=== PATIENT | male | born 1955 | race Native Hawaiian/Other Pacific Islander ===

== ENCOUNTER 2018-01-10 21:44 | Emergency (ER) | payer OTHER ==
[~2018-01-10] VITALS: Ht 175.3 cm; Wt 85.7 kg
[2018-01-10 23:08] VITALS: BP 158/92; TEMP 98
== END 2018-01-10 23:08 | disposition home or self-care (01) ==
LOC: ED 21:44
DX: H01.003 Unspecified blepharitis right eye, unspecified eyelid (principal)
CPT/HCPCS: 36415; 96374; 96375; 99281

== ENCOUNTER 2018-04-14 14:08 | Outpatient (CLI) | payer OTHER ==
[2018-04-14 14:51] LABS: POTASSIUM 4.2 mmol/L (3.6-5.2)
== END 2018-04-14 21:45 | disposition home or self-care (01) ==
LOC: LABW 14:08
PROVIDERS: Internal Medicine Cardiovascular Disease
DX: E78.5 Hyperlipidemia, unspecified (principal); I25.119 Atherosclerotic heart disease of native coronary artery with unspecified angina pectoris
CPT/HCPCS: 36415; 80048; 80061; 80076

== ENCOUNTER 2018-08-02 10:01 | Outpatient (CLI) | payer OTHER | END 2018-08-02 18:59 | disposition home or self-care (01) | LOC: LABW 10:01 | PROVIDERS: Physician Assistant Medical | DX: I25.119 Atherosclerotic heart disease of native coronary artery with unspecified angina pectoris (principal); I42.9 Cardiomyopathy, unspecified | CPT/HCPCS: 36415; 80048 ==

== ENCOUNTER 2018-10-22 22:31 | Outpatient (CLI) | payer OTHER | END 2018-10-22 23:01 | disposition short-term general hospital (02) | LOC: AMB 22:31 | DX: R06.02 Shortness of breath (principal); R57.8 Other shock | CPT/HCPCS: A0425; A0427 ==

== ENCOUNTER 2019-02-17 10:40 | Outpatient (CLI) | payer OTHER | END 2019-02-17 23:04 | disposition home or self-care (01) | LOC: LABW 10:40 | PROVIDERS: Internal Medicine Cardiovascular Disease | DX: E78.5 Hyperlipidemia, unspecified (principal); I25.119 Atherosclerotic heart disease of native coronary artery with unspecified angina pectoris; Z09 Encounter for follow-up examination after completed treatment for conditions other than malignant neoplasm | CPT/HCPCS: 36415; 80061; 80076 ==

== ENCOUNTER 2019-08-29 09:02 | Outpatient (CLI) | payer OTHER | END 2019-08-29 19:12 | disposition home or self-care (01) | LOC: LABW 09:02 | PROVIDERS: Internal Medicine Cardiovascular Disease | DX: E78.5 Hyperlipidemia, unspecified (principal); Z09 Encounter for follow-up examination after completed treatment for conditions other than malignant neoplasm | CPT/HCPCS: 36415; 80061; 80076 ==

== ENCOUNTER 2020-04-30 20:32 | Inpatient (IN) | payer OTHER ==
[~2020-04-30] VITALS: Ht 175.3 cm; Wt 104.9 kg
[2020-04-30 21:00] VITALS: BP 131/71; TEMP 98.7
[2020-04-30 22:14] LABS: PLATELET COUNT 229 K/uL (142-355)
[2020-04-30 22:37] LABS: PARTIAL THROMBOPLASTIN TIME 26.6 SECONDS (24.5-33.6)
[2020-04-30 22:38] LABS: POTASSIUM 4.6 mmol/L (3.6-5.2)
[2020-05-01 04:18] VITALS: BP 93/40; TEMP 97.2
[2020-05-01 04:59] VITALS: BP 120/72; TEMP 98.3; Ht 175.3 cm; Wt 104.9 kg
[2020-05-01] MEDS ORDERED: CARV6.25 PO (07:48)
[2020-05-01] MEDS ORDERED: FURO40TA93 PO (07:49)
[2020-05-01] MEDS ORDERED: EZET10TA13 PO (07:50)
[2020-05-01] MEDS ORDERED: PRAVACHOL20 MG PO (07:52)
[2020-05-01] MEDS ORDERED: ASPIRIN 81 LOW81 MG PO (07:54)
[2020-05-01] MEDS ORDERED: ENTRESTO 24-261 TAB PO ×2 (07:56→07:58)
[2020-05-01 08:00] VITALS: BP 113/63; TEMP 97.9
[2020-05-01] MEDS ORDERED: PRAS10TA PO (08:01)
[2020-05-01 12:00] VITALS: BP 136/75; TEMP 98.1
[2020-05-01] MEDS ORDERED: ALBU90AE13 INH (16:47)
[2020-05-01] MEDS ORDERED: AZIT250T3 PO (16:50)
[2020-05-01] MEDS ORDERED: BUDE1AER5 INH (16:51)
[2020-05-01] MEDS ORDERED: PRED10TA27 PO (16:53)
== END 2020-05-01 17:52 | disposition home or self-care (01) | DRG 192 ==
LOC: ED 20:32 → MED/SURG 05-01 00:35
PROVIDERS: Hospitalist; ADMIT Internal Medicine
DX: J44.1 Chronic obstructive pulmonary disease with (acute) exacerbation (principal); I25.10 Atherosclerotic heart disease of native coronary artery without angina pectoris; I11.0 Hypertensive heart disease with heart failure; I50.9 Heart failure, unspecified; Z72.0 Tobacco use; E11.9 Type 2 diabetes mellitus without complications; M15.8 Other polyosteoarthritis; G47.33 Obstructive sleep apnea (adult) (pediatric); I44.7 Left bundle-branch block, unspecified
CPT/HCPCS: 36415; 80053; 81000; 82550; 83880; 84484; 85027; 85610; 85730; 93005; 94640; 94664; 94760; 96365; 96375; 99284; J0696; J1940; J2405; J2930

== ENCOUNTER 2021-03-09 21:00 | Inpatient (IN) | payer OTHER ==
[~2021-03-09] VITALS: Ht 175.3 cm; Wt 106.4 kg
[2021-03-09 21:00] VITALS: BP 95/79; TEMP 97.6
[~2021-03-09 21:00] MED LIST: ALBU90AE13 INH; ASPIRIN 81 LOW81 MG PO; AZIT250T3 PO; BUDE1AER5 INH; CARV6.25 PO; ENTRESTO 24-261 TAB PO; EZET10TA13 PO; FURO40TA93 PO; PRAS10TA PO; PRAVACHOL20 MG PO; PRED10TA27 PO
[2021-03-09 21:30] VITALS: BP 87/48
[2021-03-09 22:00] VITALS: BP 74/46
[2021-03-09 22:28] LABS: PLATELET COUNT 247 K/uL (142-355)
[2021-03-09 22:30] VITALS: BP 90/52
[2021-03-09 22:40] LABS: POTASSIUM 3.6 mmol/L (3.6-5.2)
[2021-03-09 23:00] VITALS: BP 71/40
[2021-03-10] VITALS (19 sets, daily range): BP systolic 72–1110; BP diastolic 34–72; TEMP 97.5–99; Ht 175.3 cm; Wt 106.4 kg
[2021-03-10 08:48] LABS: POTASSIUM 3.5 mmol/L (3.6-5.2)
--- NOTE | 2021-03-10 17:40 | NUR ---
PT TRANSFERRED FROM ER TO MED-SURG FLOOR @1534. PT ALERT AND ORIENTED. VERY TALKATIVE. IV SITE TO LEFT AND RIGHT HAND WITH 22GA. IV SITE TO LEFT HAND FLUSHES WITH NO DIFFICULTY BUT IV SITE TO RIGHT HAND HAS DIFFICULTY WHEN BEING FLUSHED WITH NS. PT SPIT UP SALIVA IN BEDPAN, PT STATED "IT'S BECAUSE OF THAT TAP WATER, I CAN'T DRINK TAP WATER." FAMILY WILL BE BRINGING PT BOTTLED WATER FROM HOME. DENIES ANY PAIN OR DISCOMFORT AT PRESENT TIME. VITAL SIGNS STABLE. NAD NOTED.
[2021-03-11] VITALS (11 sets, daily range): BP systolic 90–140; BP diastolic 57–76; TEMP 97.6–99.3
[2021-03-11] MEDS ORDERED: ENTRESTO 24-261 TAB PO ×2 (04:01→04:02)
--- NOTE | 2021-03-11 05:06 | NUR ---
Screened to access the patient: 5'9" at 224 lbs. and BMI at 33 and is Class I Obesity and IBW for height = 160+/-10% (144 to 176 lbs.) and kcal needs x 25 = 1800, x 30 = 2200, x 35 = 2500, x 0 = 2900 kcal/day, protein needs x .8 to 1.5 = 58 to 109 grams per day and fluids for IBW x 25 to 40 = 1800 to 2900 ml/cc per day. Patient was admitted with dehydration, diarrhea and vomiting and Acute Kidney Failure, COPD, CAD, CHF, DM, GERD, HTN, Hyperlipidemia, tobacco abuse, Cardiac Arrthymias, ARF, and has had a heart artery stent, cornoary artery graph and cardiac pacemaker and RD reviewed all medications and labs and K and Ca depressed and BUN, Creat, gl 136 and troponin all elevated. All food preferences are honored and so stated on the diet card and substitutes are offered with all meals. RD Recommendations: 1-Monitor labs 2-PT to work with the patient as needed 3-OT to work with the patient as needed 4-Make sure patient is hydrated and increase fluids as MD feels is appropriate d/t Dx. 5-Presently on a Regular diet and may want to change to Cardiac Renal until labs wnl's 6-Add a MVI if not eating 75% of meals and d/c when eating 75% of meals 7-Add a Supplement if not eating 50% of meals and d/c when eating 50% of meals 8-On a Renal diet K, Na and Phosphorus are limited and K is depressed may want to add foods high in K 9-Ca depressed and may want to increase foods high in Calcium RD available as needed.
[2021-03-11 05:12] LABS: PLATELET COUNT 189 K/uL (142-355)
--- NOTE | 2021-03-11 05:38 | NUR ---
Patient is resting with eyes closed at this time. His tele is being monitored at nurses station, and he has had several episodes of tachycardia, with heart rate up to 170. Heart rate would only stay up a couple of minutes, and then would return to normal. Patient has a internal defibrillator. Patient was also checked on each time, and denied feeling any discomfort, and stated, "that he felt fine, and thought that his defibrillator was not working properly. and causing the monitor to show that his heartrate was high". ER physician was called and informed of patient's episodes of tachy heartrate, by charge nurse Michael Serna, and she was instructed to monitor patient's condition. Patient has had a couple episodes of diarrhea this shift. No acute distress noted, and call light is within reach.
--- NOTE | 2021-03-11 05:41 | NUR ---
PATIENT HAS A RUN OF V-TACH. AND IN HIS EARLIER CARDIACS THE TROPONIN WAS ELIVATED. I CALLED DR MARQUEZ AND MADE HIM AWARE. I REPORTED THE PATIENT WAS HAVEING NO SYMPTOMS DURNING THESE EVENTS. DR MARQUEZ GAVE NO FURTHER ORDERS AND SAID, "JUST WATCH HIM." PATIENT DENIES ANY CHEST PAIN OR SOB
--- NOTE | 2021-03-11 11:19 | NUR ---
03/11/21 0900 B/P 107/61 97 OXYGEN PT STATES HE FEELS PRESSURE IN CHEST BUT HE ALWAYS HAS THIS SENSATION.REFUSED PAIN MEDICATION STATES HE TAKES NO PAIN MEICATION.CC 03/11/[address] WILSON PRESENT IN ROOM DISCUSS PLAN OF CARE. 03/11/[address] WILSON NOTIFED PT TARPER DR. REYNA IN [place].CC 03/11/21 1030 LOADIN DOSE AMIODARONE DRIP 150MG/100 STARTED PER JES PARTIDA RN NURSE BUSINESS MANAGEMENT ANALYST. 03/11/21 LOADING DOSE COMPLETED AT 1101,B/P 85/54 74 96 OXYEN.98/592 95 03/11/21 1113 MAINTEANCE DOSE STARTED 33.3 360MG/200ML TOLERATING WELL.NS BBB PER JES PARTIDA RN. 03/11/21 1132 B/P 90/57 71 94 PERCENT. RESTING EYES CLOSED RESP EVEN NONLABORED.CALL LIGHT WITHIN REACH.CC NURSE BUSINESS MANAGEMENT ANALYST JES PARTIDA RN.B/P 90/63 76 1113
--- NOTE | 2021-03-11 12:13 | NUR ---
03/11/21 1214 B/P 102/71 79 97 PERCENT.RESTING EYES CLOSED RESP EVEN NONLABORED.
--- NOTE | 2021-03-11 12:48 | NUR ---
03/11/21 1245 INTO SPEAK WITH PATIENT,NOTIFED HER OF POTASSIUM 3.0.ALSO POS CAMPYLOBACTER RESULT.CC
--- NOTE | 2021-03-11 12:49 | NUR ---
03/11/21 1250 PT SITTING HF EATING LUNCH NOTED HR 146 RUN THEN RETURNED TO 85.AMARIDARONE DRIP IN PROGRESS AT RATE OF 33.3 TOLERATING WELL.CC
--- NOTE | 2021-03-11 13:20 | NUR ---
Patient had run of 132 HR. HR NOW AT 83 BPM. O2 AT 97%. PATIENT RESTING ON BACK WITH EYES CLOSED.
--- NOTE | 2021-03-11 13:48 | NUR ---
03/11/21 1340 RESTING WITH EYES CLOSED RESP EVEN NONLABORED HR 80 96 PERCENT.CC
--- NOTE | 2021-03-11 14:43 | NUR ---
03/11/21 1444 TALKIN ON PHONE RESP EVEN NONLABORED.HR 78 OXYGEN 96 PERCENT.
--- NOTE | 2021-03-11 14:51 | NUR ---
03/11/21 1450 OUT OF BED TO RESTROOM NAD NOTED.CC
--- NOTE | 2021-03-11 15:05 | NUR ---
03/11/21 1500 ALERT ORINTED LOOKING AT PHONE INFUSION DRIP IN PROGRESS AT 33.3 TOLERATING WELL.CCC
--- NOTE | 2021-03-11 17:31 | NUR ---
NEW AMIODARONE DRIP INITIATED. BP- 106/69, PULSE- 71, O2 SAT- 96, RR- 16. PATIENT RESTING WATCHING TV.
--- NOTE | 2021-03-11 18:53 | NUR ---
03/11/21 1722 AMIODARONE DRIP DECREASE TO 16.6 PER MAINTEANCE PROTOCOL TOLERATING WELL.CC 03/11/21 1855 BACK TO BED FROM RESTROOM LOOSE STOOL X 1 VOID.CALL LIGHT EVIE ADAMSON.CC
--- NOTE | 2021-03-11 20:59 | NUR ---
PM. ASPIRIN GIVEN AT THIS TIME. ANTIBIOTIC INFUSING AT THIS TIME. MAINTENANCE AMIODARONE DRIP INFUSING AT 16.6 ML/HR AT THIS TIME. VITALS INCLUDE: 97.6, [id number], BP: 111/61, AND O2 SATURATION-96%. NO S/S OF ACUTE DISTRESS NOTED OR EXPRESSED AT THIS TIME.
[2021-03-12 06:16] LABS: PLATELET COUNT 207 K/uL (142-355)
[2021-03-12 06:32] LABS: POTASSIUM 3.8 mmol/L (3.6-5.2)
--- NOTE | 2021-03-12 09:14 | NUR ---
SPOKE TO MD REGARDING PT STATUS. LABS AND CHART REVIEWED NO NEW ORDERS GIVEN. FOLLOWED UP ON CONTACT PRECAUTIONS AND PROPER PPE WAS PLACED ON DOOR AND EXPLAINED TO PT WHY THIS PPE WAS REQUIRED. PT VERBALIZED UNDERSTANDING
[2021-03-12 21:00] VITALS: BP 128/78; TEMP 98.5
[2021-03-13 01:00] VITALS: BP 121/64; TEMP 97.4
[2021-03-13 05:00] VITALS: BP 110/58; TEMP 98.3
[2021-03-13 06:06] LABS: PLATELET COUNT 212 K/uL (142-355)
[2021-03-13 06:28] LABS: POTASSIUM 2.9 mmol/L (3.6-5.2)
[2021-03-13 08:00] VITALS: BP 114/70; TEMP 98
--- NOTE | 2021-03-13 12:06 | NUR ---
PT SUPINE POSITION IN BED. DENIES ANY PAIN/DISCOMFORT.NAD NOTED. ADMINISTERED AM MEDS ORDERED, PT TOLERATED WELL. NO VOICED COMPLAINTS. PT ALERT AND OREIENTED.
[2021-03-13 13:00] VITALS: BP 127/77; TEMP 97.4
[2021-03-13 17:00] VITALS: BP 128/76; TEMP 97.9
[2021-03-13 20:44] VITALS: BP 124/74; TEMP 98.5
[2021-03-14] VITALS: BP 124/73; TEMP 98.3
[2021-03-14 04:00] VITALS: BP 116/72; TEMP 98.4
[2021-03-14 05:31] LABS: POTASSIUM 3.6 mmol/L (3.6-5.2)
[2021-03-14 08:00] VITALS: BP 110/50; TEMP 98.2
[2021-03-14 12:42] VITALS: BP 115/79; TEMP 98.3
[2021-03-14] MEDS ORDERED: CORDARONE 200MG TAB PO (15:23)
[2021-03-14] MEDS ORDERED: XARELTO20 MG PO (15:24)
--- NOTE | 2021-03-14 16:04 | NUR ---
PT DISCHARGED TO GO HOME PER DR WILSON. PTS DISCHARGED INSTRUCTIONS WERE GIVEN AND PT VERBALIZED UNDERSTANDING. PRESCRIPTIONS GIVEN TO PT AND HOME MEDS GIVEN TO PT. IV SITE D/C'D TO LEFT HAND AND NO SWELLING OR REDNESS NOTED. PT TRANSPORTED OUT OF FACILITY IN WHEELCHAIR.
== END 2021-03-14 18:18 | disposition home or self-care (01) | DRG 372 ==
LOC: ED 21:00 → MED/SURG 03-10 12:30
PROVIDERS: Emergency Medicine; ADMIT Internal Medicine; ATTEND Internal Medicine
DX: A04.5 Campylobacter enteritis (principal); N17.8 Other acute kidney failure; I48.91 Unspecified atrial fibrillation; I25.10 Atherosclerotic heart disease of native coronary artery without angina pectoris; I11.0 Hypertensive heart disease with heart failure; I50.9 Heart failure, unspecified; E78.49 Other hyperlipidemia; J44.9 Chronic obstructive pulmonary disease, unspecified; K21.9 Gastro-esophageal reflux disease without esophagitis; E11.9 Type 2 diabetes mellitus without complications; Z95.0 Presence of cardiac pacemaker; R00.0 Tachycardia, unspecified; E87.6 Hypokalemia
CPT/HCPCS: 36415; 80048; 80053; 82150; 82570; 83690; 84300; 84484; 85027; 87015; 87045; 87635; 87899; 93005; 96360; 96361; 96375; 99284; J0282; J0456; J1650; J2405; U0003

== ENCOUNTER 2021-04-26 08:45 | Outpatient (CLI) | payer OTHER ==
[~2021-04-26 08:45] MED LIST changes: +CORDARONE 200MG TAB PO; +XARELTO20 MG PO
== END 2021-04-26 21:40 | disposition home or self-care (01) ==
LOC: LAB 08:45
PROVIDERS: ATTEND Nurse Practitioner Family
DX: R05 Cough (principal); J02.9 Acute pharyngitis, unspecified; J34.89 Other specified disorders of nose and nasal sinuses; R50.9 Fever, unspecified; Z11.52 Encounter for screening for COVID-19
CPT/HCPCS: 87635; G2023; U0003

== ENCOUNTER 2021-05-08 16:20 | Outpatient (CLI) | payer OTHER | END 2021-05-08 19:35 | disposition home or self-care (01) | LOC: RAD 16:20 | PROVIDERS: ATTEND Nurse Practitioner Family | DX: R06.02 Shortness of breath (principal) ==

== ENCOUNTER 2021-11-22 14:02 | Outpatient (CLI) | payer OTHER | END 2021-11-22 21:01 | disposition home or self-care (01) | LOC: LABW 14:02 | PROVIDERS: ATTEND Internal Medicine Cardiovascular Disease | DX: E78.00 Pure hypercholesterolemia, unspecified (principal); Z79.899 Other long term (current) drug therapy | CPT/HCPCS: 36415; 80061; 80076 ==

== ENCOUNTER 2022-05-26 08:00 | Outpatient (CLI) | payer OTHER | END 2022-05-26 18:55 | disposition home or self-care (01) | LOC: LABW 08:00 | PROVIDERS: ATTEND Internal Medicine Cardiovascular Disease | DX: E78.00 Pure hypercholesterolemia, unspecified (principal) | CPT/HCPCS: 36415; 80061; 80076 ==

== ENCOUNTER 2022-09-20 11:56 | Emergency (ER) | payer OTHER ==
[~2022-09-20] VITALS: Ht 175.3 cm; Wt 110.2 kg
[2022-09-20 12:02] VITALS: TEMP 98.5
[2022-09-20 14:00] VITALS: BP 115/59
== END 2022-09-20 14:30 | disposition home or self-care (01) ==
LOC: ED 11:56
DX: S71.151A Open bite, right thigh, initial encounter (principal); S71.131A Puncture wound without foreign body, right thigh, initial encounter; W54.0XXA Bitten by dog, initial encounter; Y92.89 Other specified places as the place of occurrence of the external cause
CPT/HCPCS: 90715; 96372; 99283; J0696